=== PATIENT | male | born 1990 | race Two or more races ===

== ENCOUNTER 2023-04-10 02:37 | Emergency (ER) | payer SELFPAY ==
[~2023-04-10] VITALS: Ht 172.7 cm; Wt 68.0 kg
[2023-04-10 02:44] VITALS: TEMP 96.3
[2023-04-10 03:23] VITALS: BP 120/77; PULSE 116; RESP 18
== END 2023-04-10 05:31 | disposition home or self-care (01) ==
LOC: EMS 02:42
DX: F10.129 Alcohol abuse with intoxication, unspecified (principal)
CPT/HCPCS: 99281; Z7502